=== PATIENT | male | born 1965 | race Caucasian/White ===

== ENCOUNTER → 2017-10-14 | Outpatient (CLI) | payer BC ==
[~2017-10-14] MED LIST: NKHM
[2017-10-14 15:47] LABS: HEMATOCRIT 44.7 % (42.0-52.0); HEMOGLOBIN 15.5 g/dl (14.0-18.0); MEAN CELL VOLUME 86.1 fl (80.0-94.0); MEAN CORPUSCULAR HGB 29.9 pg (27.0-31.0); MEAN CORPUSCULAR HGB CONC 34.7 g/dl (33.0-37.0); MEAN PLATELET VOLUME 10.8 fl (9.6-12.3); RED BLOOD COUNT 5.19 10*6/uL (4.50-5.90); RED CELL DISTRI WIDTH 13.2 % (0-14.5); WHITE BLOOD COUNT 6.7 10*3/uL (4.8-10.8)
[2017-10-14 16:17] LABS: ALBUMIN 4.1 gm/dl (3.1-4.5); ALKALINE PHOSPHATASE 87 U/L (45-117); BUN 11 mg/dl (7-24); CHLORIDE 107 mmol/L (98-107); CHOLESTEROL 148 mg/dL (<200); CREATININE 1.29 mg/dL (0.70-1.30); HDL CHOLESTEROL 42 mg/dl (40-60); LDL CHOLESTEROL 72 mg/dL (9-159); POTASSIUM 3.8 mmol/L (3.5-5.1); SGOT/AST 20 IU/L (3-35); SGPT/ALT 31 U/L (12-78); SODIUM 143 mmol/L (136-145); TOTAL PROTEIN 7.4 gm/dL (6.4-8.2); TRIGLYCERIDES 171 mg/dl (<150); VLDL CHOLESTEROL 34 mg/dL (6-40)
== END | disposition home or self-care (01) ==
LOC: LAB 15:16
PROVIDERS: Family Medicine
DX: Z13.220 Encounter for screening for lipoid disorders (principal); R42 Dizziness and giddiness

== ENCOUNTER 2018-05-21 17:27 | Emergency (ER) | payer BC ==
[~2018-05-21] VITALS: Ht 187.9 cm; Wt 95.3 kg
[2018-05-21] MEDS ORDERED: PREDNISONE20 M1 PO (17:33)
== END 2018-05-21 17:50 | disposition home or self-care (01) ==
LOC: ED 17:27
DX: L23.7 Allergic contact dermatitis due to plants, except food (principal)

== ENCOUNTER 2020-09-06 17:18 | Emergency (ER) | payer SELFPAY ==
[~2020-09-06] VITALS: Ht 187.9 cm; Wt 97.5 kg
[~2020-09-06 17:18] MED LIST changes: +PREDNISONE20 M1 PO
[2020-09-06] MEDS ORDERED: CEPHALEXIN500 M1 PO (21:04)
[2020-09-06] MEDS ORDERED: IBUPROFEN600 MG PO (21:49)
[2020-09-07] MEDS ORDERED: XARELTO10 MG PO (16:38)
== END 2020-09-06 22:00 | disposition home or self-care (01) ==
LOC: ED 17:18
DX: I80.9 Phlebitis and thrombophlebitis of unspecified site (principal)

== ENCOUNTER 2020-09-07 16:19 | Emergency (ER) | payer SELFPAY ==
[~2020-09-07] VITALS: Wt 95.7 kg
[~2020-09-07 16:19] MED LIST changes: +CEPHALEXIN500 M1 PO; +IBUPROFEN600 MG PO
[2020-09-07] MEDS ORDERED: XARELTO10 MG PO (16:38)
== END 2020-09-07 16:55 | disposition home or self-care (01) ==
LOC: ED 16:19
DX: I80.3 Phlebitis and thrombophlebitis of lower extremities, unspecified (principal); Z79.899 Other long term (current) drug therapy

== ENCOUNTER → 2020-10-11 | Outpatient (CLI) | payer SELFPAY ==
[~2020-10-11] MED LIST changes: +XARELTO10 MG PO
== END | disposition home or self-care (01) ==
LOC: RESCLI 00:41
PROVIDERS: ATTEND Emergency Medicine
DX: Z23 Encounter for immunization (principal); I80.9 Phlebitis and thrombophlebitis of unspecified site; Z76.89 Persons encountering health services in other specified circumstances

== ENCOUNTER → 2020-12-28 | Outpatient (CLI) | payer SELFPAY | END | disposition home or self-care (01) | LOC: COVID19 13:28 | PROVIDERS: ATTEND Nurse Practitioner Primary Care | DX: M79.10 Myalgia, unspecified site (principal); R53.83 Other fatigue; Z20.822 Contact with and (suspected) exposure to COVID-19 ==

== ENCOUNTER → 2023-05-19 | Outpatient (CLI) | payer BC | END | disposition home or self-care (01) | LOC: US 14:19 | PROVIDERS: ATTEND Internal Medicine | DX: I82.402 Acute embolism and thrombosis of unspecified deep veins of left lower extremity (principal); R60.0 Localized edema ==

== ENCOUNTER 2023-07-04 11:47 | Emergency (ER) | payer BC ==
[~2023-07-04] VITALS: Ht 187.9 cm; Wt 106.6 kg
[~2023-07-04 11:47] MED LIST changes: +NAPROSYN500 MG PO
[2023-07-04] MEDS ORDERED: XARE20MG PO (12:16)
[2023-07-04 12:28] LABS: BASO # 0.1 10*3/uL (0.0-0.1); BASO % 0.6 % (0.0-1.0); EOS # 0.2 10*3/uL (0.0-0.4); EOS % 2.7 % (1.0-4.0); HEMATOCRIT 41.2 % (42.0-52.0); LYMPH # 1.1 10*3/uL (1.3-4.4); LYMPH % 13.8 % (27.0-41.0); MEAN CELL VOLUME 85.7 fl (80.0-94.0); MEAN CORPUSCULAR HGB 29.5 pg (27.0-31.0); MEAN CORPUSCULAR HGB CONC 34.5 g/dl (33.0-37.0); MEAN PLATELET VOLUME 10.3 fl (9.6-12.3); MONO # 0.5 10*3/uL (0.1-1.0); MONO % 5.6 % (3.0-9.0); NEUT # 6.2 10*3/uL (2.3-7.9); NEUT % 76.9 % (47.0-73.0); PLATELET COUNT AUTOMATED 141 10*3/uL (130-400); RED BLOOD COUNT 4.81 10*6/uL (4.50-5.90); RED CELL DISTRI WIDTH 13.6 % (0-14.5); WHITE BLOOD COUNT 8.1 10*3/uL (4.8-10.8)
[2023-07-04 12:39] LABS: ACT PARTIAL THROMBO TIME 28.2 SECONDS (20.0-32.1); INTERNATIONAL NORM RATIO 1.1 (2.0-3.5)
[2023-07-04 12:51] LABS: ALKALINE PHOSPHATASE 83 U/L (46-116); BUN 9 mg/dl (9-23); CHLORIDE 104 mmol/L (98-107); POTASSIUM 3.2 mmol/L (3.4-5.1); SGPT/ALT 32 U/L (10-49); TOTAL PROTEIN 6.5 gm/dL (6.0-8.0)
[2023-07-04] MEDS ORDERED: CEPHALEXIN500 M1 PO (12:56)
== END 2023-07-04 13:42 | disposition home or self-care (01) ==
LOC: ED 11:47
PROVIDERS: Internal Medicine
DX: S70.11XA Contusion of right thigh, initial encounter (principal); W21.06XA Struck by volleyball, initial encounter; Y93.68 Activity, volleyball (beach) (court); Y92.39 Other specified sports and athletic area as the place of occurrence of the external cause; Y99.8 Other external cause status

== ENCOUNTER 2024-09-02 16:13 | Emergency (ER) | payer BC ==
[~2024-09-02] VITALS: Ht 187.9 cm; Wt 108.9 kg
[~2024-09-02 16:13] MED LIST changes: +XARE20MG PO
== END 2024-09-02 17:08 | disposition home or self-care (01) ==
LOC: ED 16:13
DX: U07.1 COVID-19 (principal); Z86.718 Personal history of other venous thrombosis and embolism

== ENCOUNTER → 2024-12-21 | Outpatient (CLI) | payer BC ==
[2024-12-21 15:56] LABS: HEMATOCRIT 45.2 % (42.0-52.0); MEAN CELL VOLUME 84.2 fl (80.0-94.0); MEAN CORPUSCULAR HGB 28.5 pg (27.0-31.0); MEAN CORPUSCULAR HGB CONC 33.8 g/dl (33.0-37.0); MEAN PLATELET VOLUME 9.9 fl (9.6-12.3); RED BLOOD COUNT 5.37 10*6/uL (4.50-5.90); RED CELL DISTRI WIDTH 13.7 % (0-14.5); WHITE BLOOD COUNT 7.8 10*3/uL (4.8-10.8)
[2024-12-21 16:24] LABS: ALKALINE PHOSPHATASE 96 U/L (46-116); BUN 14 mg/dl (9-23); CHLORIDE 105 mmol/L (98-107); CHOLESTEROL 162 mg/dL (<200); LDL CHOLESTEROL 100 mg/dL (9-159); POTASSIUM 3.4 mmol/L (3.4-5.1); SGPT/ALT 25 U/L (5-49); TOTAL PROTEIN 7.2 gm/dL (6.0-8.0); TRIGLYCERIDES 141 mg/dl (<150)
[2024-12-23 18:06] LABS: ACTIVATED PROTEIN C 1.9 ratio (2.2-3.5)
== END | disposition home or self-care (01) ==
LOC: LAB 15:09 → US 15:30
PROVIDERS: ATTEND Physician Assistant
DX: Z12.5 Encounter for screening for malignant neoplasm of prostate (principal); I80.9 Phlebitis and thrombophlebitis of unspecified site; M79.604 Pain in right leg; R35.0 Frequency of micturition; Z79.899 Other long term (current) drug therapy

== ENCOUNTER → 2025-01-11 | Outpatient (CLI) | payer BC | END | disposition home or self-care (01) | LOC: LAB 15:08 | PROVIDERS: ATTEND Physician Assistant | DX: Z12.5 Encounter for screening for malignant neoplasm of prostate (principal); D68.59 Other primary thrombophilia; I80.9 Phlebitis and thrombophlebitis of unspecified site; R97.20 Elevated prostate specific antigen [PSA] ==

== ENCOUNTER → 2025-02-21 | Outpatient (CLI) | payer BC ==
[2025-02-21 12:01] LABS: BASO # 0.1 10*3/uL (0.0-0.1); BASO % 0.9 % (0.0-1.0); EOS # 0.3 10*3/uL (0.0-0.4); EOS % 3.6 % (1.0-4.0); HEMATOCRIT 47.6 % (42.0-52.0); MEAN CELL VOLUME 85.8 fl (80.0-94.0); MEAN CORPUSCULAR HGB 28.5 pg (27.0-31.0); MEAN CORPUSCULAR HGB CONC 33.2 g/dl (33.0-37.0); MEAN PLATELET VOLUME 10.2 fl (9.6-12.3); MONO # 0.5 10*3/uL (0.1-1.0); MONO % 6.5 % (3.0-9.0); NEUT # 4.9 10*3/uL (2.3-7.9); NEUT % 70.3 % (47.0-73.0); PLATELET COUNT AUTOMATED 171 10*3/uL (130-400); RED BLOOD COUNT 5.55 10*6/uL (4.50-5.90); RED CELL DISTRI WIDTH 13.2 % (0-14.5); WHITE BLOOD COUNT 6.9 10*3/uL (4.8-10.8)
[2025-02-21 12:21] LABS: BUN 13 mg/dl (9-23); CHLORIDE 105 mmol/L (98-107); POTASSIUM 3.6 mmol/L (3.4-5.1)
== END | disposition home or self-care (01) ==
LOC: LAB 11:24
PROVIDERS: ATTEND Internal Medicine Hematology & Oncology
DX: I80.11 Phlebitis and thrombophlebitis of right femoral vein (principal); D68.51 Activated protein C resistance

== ENCOUNTER → 2025-09-26 | Outpatient (CLI) | payer BC | END | disposition home or self-care (01) | LOC: LAB 14:38 | PROVIDERS: ATTEND Urology | DX: R97.20 Elevated prostate specific antigen [PSA] (principal) ==